=== PATIENT | male | born 1975 | race Caucasian/White ===

== ENCOUNTER 2019-02-24 11:25 | Inpatient (IN) | payer BC, OTHER ==
[~2019-02-24] VITALS: Ht 185.4 cm; Wt 90.2 kg
--- NOTE | 2019-02-24 11:54 | NUR ---
MEDICATION REQUESTED FROM PHARMACY
--- NOTE | 2019-02-24 11:56 | NUR ---
Note mo in EDM - 02/24/19 at 1156 by MARILY PER PT REQUEST, CALL PLACED TO HER MOM SYLVAIN [phone]. MESSAGE LEFT ASKING HER TO CALL THE ER. PT UPDATED.
[2019-02-24] MEDS ORDERED: LIDOCAINE 2%,20 ML JEL.PF.APP MM ONE (12:00)
[2019-02-24] MEDS ORDERED: HYDR30SU4 PR (12:03)
[2019-02-24] MEDS ORDERED: MESA1POW RC (12:05)
[2019-02-24 12:06] LABS: BASOPHILS # (AUTO) 0.04 x10^3/uL (0-0.1); BASOPHILS % (AUTO) 0 % (0-1); EOSINOPHILS # (AUTO) 0.23 x10^3/uL (0-0.4); EOSINOPHILS % (AUTO) 2 % (1-7); LYMPHOCYTES # (AUTO) 1.11 x10^3/uL (1-3.4); LYMPHOCYTES % (AUTO) 11 % (22-44); MD NO; MEAN CORPUSCULAR HEMOGLOBIN 31.7 pg (27.5-34.5); MEAN CORPUSCULAR HGB CONC 33.4 g/dL (33.2-36.2); MEAN CORPUSCULAR VOLUME 95.2 fL (81-97); MONOCYTES # (AUTO) 0.77 x10^3/uL (0.2-0.8); MONOCYTES % (AUTO) 8 % (2-9); NEUTROPHILS # (AUTO) 7.87 x10^3/uL (1.8-6.8); NEUTROPHILS % (AUTO) 79 % (42-75); PLATELET COUNT 334 x10^3/uL (130-400); RED BLOOD COUNT 3.95 x10^6/uL (4.38-5.82); RED CELL DISTRIBUTION WIDTH 12.3 % (9.4-14.8)
[2019-02-24] MEDS ORDERED: MESALAMINE PR (12:09)
--- NOTE | 2019-02-24 12:11 | NUR ---
FIRST CONTACT WITH PT. PT REPORTS "7 WEEKS OF ANAL PAIN AND INC FREQUENCY OF BM'S". PT REPORTS HX OF CROHN'S DISEASE, DIAGNOSED IN 2017. PT ALSO REPORTS FEVERS AND LOSS OF WEIGHT DUE TO A DECREASE IN ORAL INTAKE. PT REPORTS PAIN AT AN 8/10. PT NOT CURRENTLY ON MED FOR THE CROHN'S. SO AT BEDSIDE.
[2019-02-24 12:14] LABS: ALANINE AMINOTRANSFERASE 21 U/L (12-78); ANION GAP 9 mmol/L (5-15); CALCIUM 8.8 mg/dL (8.5-10.1); CHLORIDE 104 mmol/L (98-107); CREATININE 1.01 mg/dL (0.7-1.3)
[2019-02-24 12:16] LABS: ALKALINE PHOSPHATASE 139 U/L (45-117); BILIRUBIN,TOTAL 0.5 mg/dL (0.2-1.0); TOTAL PROTEIN 7.9 g/dL (6.4-8.2)
--- NOTE | 2019-02-24 13:03 | NUR ---
FULL DOSE OF LIDOCAINE INJECTED INTO PT RECTUM. PT TOLERATED PROCEDURE AND REPORTS A REDUCTION IN PAIN FROM A 8 DOWN TO A 5. NO SIGNS OF ACUTE DISTRESS. VS STABLE. PT DENIES ANY ADDITIONAL NEEDS AT THIS TIME.
[2019-02-24] MEDS ORDERED: OMNIPAQUE 350 MG/ML, 100ML BOTTLE ONE (13:52)
--- NOTE | 2019-02-24 14:18 | NUR ---
Break RN: Report from Roxanne CRUZ, pt req pain meds, no cultures needed prior to abx per md.
[2019-02-24] MEDS ORDERED: MORPHINE SULFATE 4 MG/ML, 1ML ONE (14:20)
--- NOTE | 2019-02-24 14:29 | NUR ---
Pt medicated for 8/10 pain, pt reports decreased pain after meds, denies needs/concerns, family at bedside.
[2019-02-24] MEDS ORDERED: METRONIDAZOLE PMX 500MG/100ML 100 ML IV ONE (14:30)
[2019-02-24] MEDS ORDERED: AMPICILLIN/SULBACTAM 3 GM in SODIUM CHLORIDE 0.9% 100 ML IV ONE (14:30)
[2019-02-24] MEDS ORDERED: morphine SULFATE 10 MG/ML, 1ML IVPush ONE (14:30)
[2019-02-24] MEDS ORDERED: ONDANSETRON 2MG/ML, 2ML IVPush PRN (15:00)
[2019-02-24] MEDS ORDERED: ACETAMINOPHEN 325 MG TABLET PO PRN (15:00)
[2019-02-24] MEDS ORDERED: hydrALAzine 20 MG/ML, 1ML IVPush PRN (15:00)
--- NOTE | 2019-02-24 15:00 | NUR ---
ATTEMPT TO CALL REPORT, NURSE NOT AVAILABLE. IV ABX INFUSING WITHOUT S/S OF ADVERSE REACTION. NO NEEDS EXPRESSED AT THIS TIME.
[2019-02-24] MEDS ORDERED: METRONIDAZOLE PMX 500MG/100ML 100 ML ONE (15:13)
--- NOTE | 2019-02-24 15:19 | NUR ---
CALLING REPORT TO CHELLE ON 3NE.
--- NOTE | 2019-02-24 15:43 | NUR ---
REPORT GIVEN TO CHELLE. JANINA CURRENTLY RUNNING. AT BEDSIDE. PT DENIES ANY NEEDS.
[2019-02-24 16:18] VITALS: BP 134/75
[2019-02-24] MEDS: D5%-0.45NACL+KCL 20MEQ 1,000 ML IV SCH (16:58)
[2019-02-24] MEDS: OXYcodone IR 5MG TABLET PO PRN ×2 (17:40→21:56)
[2019-02-24 20:27] VITALS: BP 117/74
[2019-02-25] MEDS: D5%-0.45NACL+KCL 20MEQ 1,000 ML IV SCH (00:52)
[2019-02-25 00:53] VITALS: BP 115/75
[2019-02-25] MEDS: OXYcodone IR 5MG TABLET PO PRN ×6 (02:13→23:27)
[2019-02-25] MEDS: morphine SULFATE 10 MG/ML, 1ML IVPush PRN ×4 (03:30→22:43)
[2019-02-25 05:42] LABS: BASOPHILS # (AUTO) 0.01 x10^3/uL (0-0.1); BASOPHILS % (AUTO) 0 % (0-1); EOSINOPHILS # (AUTO) 0.35 x10^3/uL (0-0.4); EOSINOPHILS % (AUTO) 3 % (1-7); LYMPHOCYTES # (AUTO) 1.38 x10^3/uL (1-3.4); LYMPHOCYTES % (AUTO) 12 % (22-44); MD NO; MEAN CORPUSCULAR HEMOGLOBIN 31.8 pg (27.5-34.5); MEAN CORPUSCULAR HGB CONC 33.4 g/dL (33.2-36.2); MEAN PLATELET VOLUME 9.4 fL (7.4-10.4); MONOCYTES # (AUTO) 1.19 x10^3/uL (0.2-0.8); MONOCYTES % (AUTO) 11 % (2-9); NEUTROPHILS # (AUTO) 8.21 x10^3/uL (1.8-6.8); NEUTROPHILS % (AUTO) 74 % (42-75); PLATELET COUNT 285 x10^3/uL (130-400); RED BLOOD COUNT 3.49 x10^6/uL (4.38-5.82); RED CELL DISTRIBUTION WIDTH 12.5 % (9.4-14.8)
[2019-02-25 06:07] LABS: CHLORIDE 104 mmol/L (98-107); CREATININE 0.83 mg/dL (0.7-1.3)
[2019-02-25 06:10] LABS: ANION GAP 6 mmol/L (5-15); CALCIUM 7.8 mg/dL (8.5-10.1)
[2019-02-25 07:46] VITALS: BP 108/66
[2019-02-25 13:46] VITALS: BP 109/70
[2019-02-25] MEDS: METRONIDAZOLE PMX 500MG/100ML 100 ML IV SCH ×2 (14:55→22:43)
[2019-02-25] MEDS: CIPROFLOXACIN/PMX 400MG/200ML 200 ML IV SCH (16:25)
[2019-02-25 18:45] VITALS: BP 110/67
[2019-02-26 01:00] VITALS: BP 115/70
[2019-02-26] MEDS: CIPROFLOXACIN/PMX 400MG/200ML 200 ML IV SCH ×2 (02:34→16:44)
[2019-02-26] MEDS: OXYcodone IR 5MG TABLET PO PRN ×4 (04:23→21:20)
[2019-02-26] MEDS: METRONIDAZOLE PMX 500MG/100ML 100 ML IV SCH ×3 (06:32→22:25)
[2019-02-26 07:35] VITALS: BP 114/74
[2019-02-26] MEDS: morphine SULFATE 10 MG/ML, 1ML IVPush PRN ×4 (08:11→22:25)
[2019-02-26] MEDS ORDERED: PROPOFOL 50 ML ONE (12:10)
[2019-02-26] MEDS ORDERED: MIDAZOLAM 1 MG/ML, 2ML ONE (12:10)
[2019-02-26] MEDS ORDERED: FENTANYL PF 250 MCG/5ML ONE (12:11)
[2019-02-26 12:20] VITALS: BP 114/63
[2019-02-26] MEDS ORDERED: ONDANSETRON 2MG/ML, 2ML IV PRN (13:00)
[2019-02-26] MEDS ORDERED: MEPERIDINE/PF 25MG/0.5ML IVPush PRN (13:00)
[2019-02-26] MEDS ORDERED: ONDANSETRON ODT 8 MG PO PRN (13:00)
[2019-02-26] MEDS ORDERED: OXYcodone 5 MG/5 ML ORAL.SOL UDC PO PRN (13:00)
[2019-02-26] MEDS ORDERED: EPHEDRINE 50 MG/ML, 1ML IM PRN (13:00)
[2019-02-26] MEDS ORDERED: MORPHINE SULFATE 4 MG/ML, 1ML IVPush PRN (13:00)
[2019-02-26] MEDS ORDERED: MIDAZOLAM 1 MG/ML, 2ML IV PRN (13:00)
[2019-02-26] MEDS ORDERED: PROMETHAZINE 25 MG/ML, 1ML IV PRN (13:00)
[2019-02-26] MEDS ORDERED: DIPHENHYDRAMINE 50 MG/ML, 1ML IVPush PRN (13:00)
[2019-02-26] MEDS ORDERED: FENTANYL PF 100 MCG/2ML IV PRN (13:00)
[2019-02-26] MEDS ORDERED: SILVER SULF. CRM 1% , 25GM ONE (13:17)
[2019-02-26] MEDS ORDERED: LIDOCAINE 2%, 6 ML JEL.PF.APP MM ONE (13:23)
[2019-02-26] MEDS ORDERED: ONDANSETRON 2MG/ML, 2ML ONE (13:44)
[2019-02-26] MEDS ORDERED: KETOROLAC 30 MG/1 ML ONE (13:44)
[2019-02-26] MEDS ORDERED: PROPOFOL 10 MG/ML, 20ML ONE (13:44)
[2019-02-26] MEDS ORDERED: DEXAMETHASONE 4 MG/ML, 1ML ONE (13:44)
[2019-02-26] MEDS ORDERED: BUPIVACAINE/PF-EPI 0.5% 1:200K ONE (13:51)
[2019-02-26 19:57] VITALS: BP 104/66
[2019-02-27 01:33] VITALS: BP 94/55
[2019-02-27] MEDS: OXYcodone IR 5MG TABLET PO PRN ×6 (01:48→23:20)
[2019-02-27] MEDS: morphine SULFATE 10 MG/ML, 1ML IVPush PRN ×6 (03:07→21:44)
[2019-02-27] MEDS: CIPROFLOXACIN/PMX 400MG/200ML 200 ML IV SCH ×2 (04:23→16:57)
[2019-02-27] MEDS: METRONIDAZOLE PMX 500MG/100ML 100 ML IV SCH ×3 (06:03→23:20)
[2019-02-27 07:45] VITALS: BP 105/62
[2019-02-27 13:00] VITALS: BP 105/65
[2019-02-27 19:30] VITALS: BP 106/66
[2019-02-28 01:37] VITALS: BP 103/65
[2019-02-28] MEDS: CIPROFLOXACIN/PMX 400MG/200ML 200 ML IV SCH ×2 (04:48→16:30)
[2019-02-28] MEDS: OXYcodone IR 5MG TABLET PO PRN ×3 (04:53→13:42)
[2019-02-28] MEDS: METRONIDAZOLE PMX 500MG/100ML 100 ML IV SCH ×2 (07:29→15:30)
[2019-02-28 08:08] VITALS: BP 107/65
[2019-02-28] MEDS: morphine SULFATE 10 MG/ML, 1ML IVPush PRN (11:49)
[2019-02-28 13:00] VITALS: BP 99/61
[2019-02-28] MEDS ORDERED: CIPR500T3 PO (15:40)
[2019-02-28] MEDS ORDERED: METR-90 PO (15:40)
[2019-02-28] MEDS ORDERED: OXYC-293 PO (15:41)
== END 2019-02-28 18:19 | disposition home or self-care (01) | DRG 345 ==
LOC: ED 12:25 → EDIP 14:54 → 3NE 15:48
PROVIDERS: ADMIT Hospitalist; ATTEND Hospitalist
PROC: 0DJD8ZZ Inspection of Lower Intestinal Tract, Via Natural or Artificial Opening Endoscopic (ICD-10-PCS; 2019-02-24)
PROC: 0D9P0ZZ Drainage of Rectum, Open Approach (ICD-10-PCS; principal; 2019-02-26 11:45)
DX: K61.1 Rectal abscess (principal); K50.911 Crohn's disease, unspecified, with rectal bleeding; K60.3 Anal fistula; D64.9 Anemia, unspecified; E88.09 Other disorders of plasma-protein metabolism, not elsewhere classified; R33.9 Retention of urine, unspecified; R73.9 Hyperglycemia, unspecified; K64.9 Unspecified hemorrhoids; Z80.1 Family history of malignant neoplasm of trachea, bronchus and lung; Z86.010 Personal history of colon polyps; Z87.891 Personal history of nicotine dependence; Z91.19 Patient's noncompliance with other medical treatment and regimen
CPT/HCPCS: 36415; 74177; 80048; 80053; 83735; 85025; 87070; 87075; 87077; 87147; 87205; 96365; 96375; G0378; J0295; J0744; J1100; J1885; J2250; J2405; J2704; J3010; Q9967; J2270; J3480

== ENCOUNTER 2019-03-04 10:42 | Inpatient (IN) | payer BC ==
[~2019-03-04] VITALS: Ht 182.9 cm; Wt 80.0 kg
[~2019-03-04 10:42] MED LIST: CIPR500T3 PO; HYDR30SU4 PR; MESA1POW RC; MESALAMINE PR; METR-90 PO; OXYC-293 PO
--- NOTE | 2019-03-04 11:31 | NUR ---
FROM LOBBY TO ROOM AT THIS TIME
--- NOTE | 2019-03-04 11:42 | NUR ---
Kika bishopeliud in ED - 03/04/19 at 1153 by [email or web address] PT STATES HE HAD SURG TO REMOVE AB ON MONDAY, WAS SENT HOME MONDAY. HIS PAIN IS 10/10, THE PAIN MEDS THAT WERE PRESCRIBED AFTER SURG ARE NOT WORKING.
--- NOTE | 2019-03-04 11:53 | NUR ---
PT STATES HE HAD SURG TO REMOVE ABSCESS FROM HIS COLON ON MONDAY, WAS SENT HOME MONDAY. HIS PAIN IS 10/10, THE PAIN MEDS THAT WERE PRESCRIBED AFTER SURG ARE NOT WORKING.
[2019-03-04] MEDS ORDERED: SODIUM CHLORIDE 0.9% 1,000 ML IV ONE ×3 (11:56→16:16)
[2019-03-04] MEDS ORDERED: SODIUM CHLORIDE 0.9% 1,000ML IVBOLUS ONE (12:00)
[2019-03-04] MEDS ORDERED: SODIUM CHLORIDE FLUSH 10ML SYR IVF ONE (12:00)
[2019-03-04] MEDS ORDERED: ONDANSETRON 2MG/ML, 2ML IVPush ONE (12:00)
[2019-03-04] MEDS ORDERED: MORPHINE SULFATE 4 MG/ML, 1ML ONE ×3 (12:23→16:13)
[2019-03-04] MEDS ORDERED: ONDANSETRON 2MG/ML, 2ML ONE ×3 (12:23→18:29)
[2019-03-04] MEDS: MORPHINE SULFATE 4 MG/ML, 1ML IVPush PRN ×2 (12:28→13:24)
[2019-03-04 12:47] LABS: BASOPHILS # (AUTO) 0.03 x10^3/uL (0-0.1); BASOPHILS % (AUTO) 0 % (0-1); EOSINOPHILS # (AUTO) 0.19 x10^3/uL (0-0.4); EOSINOPHILS % (AUTO) 2 % (1-7); LYMPHOCYTES # (AUTO) 0.92 x10^3/uL (1-3.4); LYMPHOCYTES % (AUTO) 10 % (22-44); MD NO; MEAN CORPUSCULAR HEMOGLOBIN 30.6 pg (27.5-34.5); MEAN CORPUSCULAR HGB CONC 32.7 g/dL (33.2-36.2); MEAN CORPUSCULAR VOLUME 93.6 fL (81-97); MEAN PLATELET VOLUME 9.3 fL (7.4-10.4); MONOCYTES # (AUTO) 1.17 x10^3/uL (0.2-0.8); MONOCYTES % (AUTO) 13 % (2-9); NEUTROPHILS # (AUTO) 7.03 x10^3/uL (1.8-6.8); NEUTROPHILS % (AUTO) 75 % (42-75); PLATELET COUNT 399 x10^3/uL (130-400); RED CELL DISTRIBUTION WIDTH 12.7 % (9.4-14.8)
[2019-03-04 12:57] LABS: ALANINE AMINOTRANSFERASE 65 U/L (12-78); ALBUMIN 2.8 g/dL (3.4-5.0); ANION GAP 8 mmol/L (5-15); CALCIUM 8.6 mg/dL (8.5-10.1); CHLORIDE 105 mmol/L (98-107)
[2019-03-04 13:00] LABS: ALKALINE PHOSPHATASE 244 U/L (45-117); BILIRUBIN,TOTAL 0.4 mg/dL (0.2-1.0); CREATININE 1.08 mg/dL (0.7-1.3); TOTAL PROTEIN 8.1 g/dL (6.4-8.2)
--- NOTE | 2019-03-04 13:44 | NUR ---
PT RESTING IN BED, DENIES NEEDS AT THIS TIME.
--- NOTE | 2019-03-04 13:52 | NUR ---
PLAN OF CARE DISCUSSED WITH PT AND PT FAMILY. VSS. NO ACUTE SIGNS OF DISTRESS. PT HAS BEEN INFORMED THAT WE NEED A UA, HE SAID "I WILL LET YOU KNOW WHEN I CAN GO".
[2019-03-04] MEDS ORDERED: OMNIPAQUE 350 MG/ML, 100ML BOTTLE ONE (14:16)
--- NOTE | 2019-03-04 15:06 | NUR ---
ALL TESTS RESULTED, CHART UP FOR RECHECK.
--- NOTE | 2019-03-04 15:54 | NUR ---
DR DISCUSSED PLAN OF CARE WITH PT AND FAMILY. PT AGREES WITH PLAN OF CARE. VSS. PT C/O CONTINUED PAIN, I REQUESTED PAIN MEDICATION FROM THE DR. NO ACUTE SIGNS OF DISTRESS.
[2019-03-04] MEDS ORDERED: SODIUM CHLORIDE FLUSH 10ML SYR IVF PRN ×2 (16:00→16:30)
[2019-03-04] MEDS ORDERED: ONDANSETRON 2MG/ML, 2ML IVPush PRN (16:00)
[2019-03-04] MEDS ORDERED: MORPHINE SULFATE 4 MG/ML, 1ML IVPush PRN ×2 (16:00)
[2019-03-04] MEDS: SODIUM CHLORIDE 0.9% 1,000 ML IV SCH (16:26)
[2019-03-04] MEDS ORDERED: morphine SULFATE 10 MG/ML, 1ML IVPush PRN (16:30)
[2019-03-04] MEDS ORDERED: hydrALAzine 20 MG/ML, 1ML IVPush PRN (16:30)
[2019-03-04] MEDS ORDERED: PROMETHAZINE 25 MG/ML, 1ML IM PRN (16:30)
[2019-03-04] MEDS ORDERED: ONDANSETRON ODT 4 MG PO PRN (16:30)
[2019-03-04] MEDS: PIPERACILLIN/TAZO/PMX 3.375GM 50 ML IV SCH ×2 (16:30→22:24)
[2019-03-04] MEDS ORDERED: ACETAMINOPHEN 325 MG TABLET PO PRN ×2 (16:30→18:00)
[2019-03-04] MEDS ORDERED: DOCUSATE 100 MG CAPSULE PO PRN (16:30)
[2019-03-04] MEDS ORDERED: PIPERACILLIN/TAZO/PMX 3.375GM 50 ML ONE (16:40)
--- NOTE | 2019-03-04 16:48 | NUR ---
REPORT GIVEN TO CHELLE.
[2019-03-04 17:30] LABS: HEMOGLOBIN A1C 5.3 % (4.2-6.3)
[2019-03-04 17:43] VITALS: BP 130/65
[2019-03-04] MEDS ORDERED: MIDAZOLAM 1 MG/ML, 2ML ONE (17:50)
[2019-03-04] MEDS ORDERED: FENTANYL PF 250 MCG/5ML ONE (17:51)
[2019-03-04] MEDS ORDERED: MIDAZOLAM 1 MG/ML, 2ML IV PRN (18:00)
[2019-03-04] MEDS ORDERED: PROMETHAZINE 25 MG/ML, 1ML IV PRN (18:00)
[2019-03-04] MEDS ORDERED: ALBUTEROL/IPRATROPIUM 2.5MG/0.5MG, 3 ML NPPB PRN (18:00)
[2019-03-04] MEDS ORDERED: hydrALAzine 20 MG/ML, 1ML IV PRN (18:00)
[2019-03-04] MEDS ORDERED: SCOPOLAMINE PATCH, 1.5MG PATCH.TD72 TD PRN (18:00)
[2019-03-04] MEDS ORDERED: LIDOCAINE-MPF 2% ,5ML ONE (18:00)
[2019-03-04] MEDS ORDERED: ONDANSETRON 2MG/ML, 2ML IV PRN (18:00)
[2019-03-04] MEDS ORDERED: METOPROLOL 1 MG/ML, 5ML IV PRN (18:00)
[2019-03-04] MEDS ORDERED: MEPERIDINE/PF 25MG/0.5ML IVPush PRN (18:00)
[2019-03-04] MEDS ORDERED: OXYcodone 5 MG/5 ML ORAL.SOL UDC PO PRN (18:00)
[2019-03-04] MEDS ORDERED: KETOROLAC 30 MG/1 ML ONE (18:00)
[2019-03-04 18:25] LABS: FREE T4 (FREE THYROXINE) 1.32 ng/dL (0.76-1.46); THYROID STIMULATING HORMONE 1.37 mIU/L (0.358-3.740)
[2019-03-04] MEDS ORDERED: PROPOFOL 10 MG/ML, 20ML ONE (18:29)
[2019-03-04] MEDS ORDERED: DEXAMETHASONE 4 MG/ML, 1ML ONE (18:29)
[2019-03-04] MEDS ORDERED: FENTANYL PF 100 MCG/2ML ONE (18:45)
[2019-03-04] MEDS ORDERED: OXYcodone 5 MG/5 ML ORAL.SOL UDC ONE (18:45)
[2019-03-04] MEDS: FENTANYL PF 100 MCG/2ML IV PRN ×2 (18:53→19:30)
[2019-03-04] MEDS ORDERED: HYDROmorphone 2 MG/ML, 1ML ONE (19:15)
[2019-03-04] MEDS: HYDROmorphone 2 MG/ML, 1ML IVPush PRN ×2 (19:17→19:35)
[2019-03-04 20:00] VITALS: BP 116/82
[2019-03-04 23:30] VITALS: BP_SYST 119; BP_SYST 123; BP_DIAS 73; BP_DIAS 76
[2019-03-05] MEDS: SODIUM CHLORIDE 0.9% 1,000 ML IV SCH ×2 (00:21→08:43)
[2019-03-05 03:22] VITALS: BP 112/68
[2019-03-05] MEDS: OXYcodone IR 5MG TABLET PO PRN ×5 (04:32→23:43)
[2019-03-05] MEDS: PIPERACILLIN/TAZO/PMX 3.375GM 50 ML IV SCH ×4 (04:33→22:38)
[2019-03-05 05:21] LABS: BASOPHILS # (AUTO) 0.01 x10^3/uL (0-0.1); BASOPHILS % (AUTO) 0 % (0-1); EOSINOPHILS # (AUTO) 0.01 x10^3/uL (0-0.4); EOSINOPHILS % (AUTO) 0 % (1-7); LYMPHOCYTES # (AUTO) 0.76 x10^3/uL (1-3.4); LYMPHOCYTES % (AUTO) 9 % (22-44); MD NO; MEAN CORPUSCULAR HEMOGLOBIN 30.7 pg (27.5-34.5); MEAN CORPUSCULAR HGB CONC 32.6 g/dL (33.2-36.2); MEAN CORPUSCULAR VOLUME 94.2 fL (81-97); MEAN PLATELET VOLUME 9.6 fL (7.4-10.4); MONOCYTES # (AUTO) 0.68 x10^3/uL (0.2-0.8); MONOCYTES % (AUTO) 8 % (2-9); NEUTROPHILS # (AUTO) 7.15 x10^3/uL (1.8-6.8); NEUTROPHILS % (AUTO) 83 % (42-75); PLATELET COUNT 361 x10^3/uL (130-400); RED BLOOD COUNT 3.32 x10^6/uL (4.38-5.82); RED CELL DISTRIBUTION WIDTH 13.2 % (9.4-14.8)
[2019-03-05 05:29] LABS: ALBUMIN 2.3 g/dL (3.4-5.0); ANION GAP 6 mmol/L (5-15); CALCIUM 7.9 mg/dL (8.5-10.1); CHLORIDE 109 mmol/L (98-107)
[2019-03-05 05:33] LABS: ALANINE AMINOTRANSFERASE 49 U/L (12-78); ALKALINE PHOSPHATASE 308 U/L (45-117); BILIRUBIN,TOTAL 0.2 mg/dL (0.2-1.0); CHOL/HDL RATIO 3.7; CHOLESTEROL, TOTAL 100 mg/dL (140-239); CREATININE 0.78 mg/dL (0.7-1.3); HDL CHOL % 27 % (26-37); HDL CHOLESTEROL (DIRECT) 27 mg/dL (40-60); LDL CHOLESTEROL,CALCULATED 54 mg/dL (54-169); TOTAL PROTEIN 6.5 g/dL (6.4-8.2); TRIGLYCERIDES 97 mg/dL (50-200); VLDL CHOLESTEROL 19 mg/dL (0-25)
[2019-03-05 07:00] VITALS: BP 117/72
[2019-03-05] MEDS ORDERED: POTASSIUM PHOSPHATE 44 MEQ in SODIUM CHLORIDE 0.9% 500 ML IV ONE (10:00)
[2019-03-05 13:20] VITALS: BP 117/59
[2019-03-05 19:18] VITALS: BP 113/55
[2019-03-06 01:51] VITALS: BP 89/46
[2019-03-06 01:59] VITALS: BP 96/61
[2019-03-06] MEDS: PIPERACILLIN/TAZO/PMX 3.375GM 50 ML IV SCH ×4 (04:25→22:10)
[2019-03-06] MEDS: OXYcodone IR 5MG TABLET PO PRN ×5 (06:02→22:10)
[2019-03-06 07:15] VITALS: BP 109/67
[2019-03-06 13:09] VITALS: BP 115/60
[2019-03-06 19:41] VITALS: BP 115/68
[2019-03-06] MEDS: D5%-0.45NACL+KCL 20MEQ 1,000 ML IV SCH (22:10)
[2019-03-07] MEDS: OXYcodone IR 5MG TABLET PO PRN ×5 (02:17→22:35)
[2019-03-07 02:36] VITALS: BP 105/65
[2019-03-07] MEDS: PIPERACILLIN/TAZO/PMX 3.375GM 50 ML IV SCH ×4 (04:46→22:35)
[2019-03-07 06:09] LABS: ANION GAP 7 mmol/L (5-15); CHLORIDE 106 mmol/L (98-107)
[2019-03-07 06:11] LABS: CREATININE 0.78 mg/dL (0.7-1.3)
[2019-03-07 06:26] LABS: BASOPHILS # (AUTO) 0.04 x10^3/uL (0-0.1); BASOPHILS % (AUTO) 1 % (0-1); EOSINOPHILS # (AUTO) 0.39 x10^3/uL (0-0.4); EOSINOPHILS % (AUTO) 6 % (1-7); LYMPHOCYTES # (AUTO) 1.38 x10^3/uL (1-3.4); LYMPHOCYTES % (AUTO) 20 % (22-44); MD NO; MEAN CORPUSCULAR HEMOGLOBIN 30.5 pg (27.5-34.5); MEAN CORPUSCULAR HGB CONC 32.7 g/dL (33.2-36.2); MEAN CORPUSCULAR VOLUME 93.3 fL (81-97); MEAN PLATELET VOLUME 9.4 fL (7.4-10.4); MONOCYTES # (AUTO) 0.86 x10^3/uL (0.2-0.8); MONOCYTES % (AUTO) 13 % (2-9); NEUTROPHILS # (AUTO) 4.09 x10^3/uL (1.8-6.8); NEUTROPHILS % (AUTO) 61 % (42-75); PLATELET COUNT 309 x10^3/uL (130-400); RED BLOOD COUNT 3.08 x10^6/uL (4.38-5.82); RED CELL DISTRIBUTION WIDTH 13.1 % (9.4-14.8)
[2019-03-07 07:19] VITALS: BP 155/65
[2019-03-07] MEDS: D5%-0.45NACL+KCL 20MEQ 1,000 ML IV SCH ×2 (08:13→22:35)
[2019-03-07] MEDS ORDERED: ROCURONIUM 10MG/ML,5ML ONE (10:30)
[2019-03-07] MEDS ORDERED: ONDANSETRON 2MG/ML, 2ML ONE (10:30)
[2019-03-07] MEDS ORDERED: DEXAMETHASONE 4 MG/ML, 1ML ONE (10:30)
[2019-03-07] MEDS ORDERED: PROPOFOL 10 MG/ML, 20ML ONE (10:30)
[2019-03-07] MEDS ORDERED: MIDAZOLAM 1 MG/ML, 2ML ONE (15:48)
[2019-03-07] MEDS ORDERED: FENTANYL PF 250 MCG/5ML ONE (15:48)
[2019-03-07] MEDS ORDERED: BUPIVACAINE/PF 0.5% ONE (16:07)
[2019-03-07] MEDS ORDERED: BUPIVACAINE/PF 0.25% ONE (16:07)
[2019-03-07] MEDS ORDERED: EPINEPHRINE 1 MG/ML, 1ML ONE (16:08)
[2019-03-07] MEDS ORDERED: MEPERIDINE/PF 25MG/0.5ML IVPush PRN (17:00)
[2019-03-07] MEDS ORDERED: hydrALAzine 20 MG/ML, 1ML IV PRN (17:00)
[2019-03-07] MEDS ORDERED: PROMETHAZINE 25 MG/ML, 1ML IV PRN (17:00)
[2019-03-07] MEDS ORDERED: ONDANSETRON 2MG/ML, 2ML IV PRN (17:00)
[2019-03-07] MEDS ORDERED: OXYcodone 5 MG/5 ML ORAL.SOL UDC PO PRN (17:00)
[2019-03-07] MEDS ORDERED: LABETALOL 5MG/ML, 20ML IV PRN (17:00)
[2019-03-07] MEDS ORDERED: FENTANYL PF 100 MCG/2ML ONE ×2 (18:05→18:43)
[2019-03-07] MEDS ORDERED: HYDROmorphone 2 MG/ML, 1ML ONE (18:05)
[2019-03-07] MEDS: HYDROmorphone 2 MG/ML, 1ML IVPush PRN ×4 (18:08→18:42)
[2019-03-07] MEDS: FENTANYL PF 100 MCG/2ML IV PRN ×4 (18:11→18:49)
[2019-03-07] MEDS ORDERED: OXYcodone 5 MG/5 ML ORAL.SOL UDC ONE (18:19)
[2019-03-07 19:14] VITALS: BP 119/89
[2019-03-08 00:17] VITALS: BP 91/54
[2019-03-08 03:34] VITALS: BP 99/58
[2019-03-08] MEDS: OXYcodone IR 5MG TABLET PO PRN ×5 (03:48→20:09)
[2019-03-08] MEDS: PIPERACILLIN/TAZO/PMX 3.375GM 50 ML IV SCH ×4 (05:10→22:17)
[2019-03-08 05:46] LABS: MEAN CORPUSCULAR HEMOGLOBIN 30.6 pg (27.5-34.5); MEAN CORPUSCULAR HGB CONC 32.6 g/dL (33.2-36.2); MEAN PLATELET VOLUME 9.8 fL (7.4-10.4); PLATELET COUNT 408 x10^3/uL (130-400); RED BLOOD COUNT 3.19 x10^6/uL (4.38-5.82)
[2019-03-08 05:58] LABS: ANION GAP 5 mmol/L (5-15); CALCIUM 7.9 mg/dL (8.5-10.1); CHLORIDE 105 mmol/L (98-107)
[2019-03-08 05:59] LABS: CREATININE 0.72 mg/dL (0.7-1.3)
[2019-03-08 06:07] LABS: BASOPHILS # (AUTO) 0.01 x10^3/uL (0-0.1); BASOPHILS % (AUTO) 0 % (0-1); EOSINOPHILS # (AUTO) 0.01 x10^3/uL (0-0.4); EOSINOPHILS % (AUTO) 0 % (1-7); LYMPHOCYTES # (AUTO) 0.89 x10^3/uL (1-3.4); LYMPHOCYTES % (AUTO) 8 % (22-44); MD SCAN; MONOCYTES # (AUTO) 0.68 x10^3/uL (0.2-0.8); MONOCYTES % (AUTO) 7 % (2-9); NEUTROPHILS # (AUTO) 9.02 x10^3/uL (1.8-6.8); NEUTROPHILS % (AUTO) 85 % (42-75)
[2019-03-08 07:20] VITALS: BP 101/56
[2019-03-08] MEDS: D5%-0.45NACL+KCL 20MEQ 1,000 ML IV SCH ×2 (09:14→18:51)
[2019-03-08 14:21] VITALS: BP 109/67
[2019-03-08 18:57] VITALS: BP 99/60
[2019-03-09] MEDS: OXYcodone IR 5MG TABLET PO PRN ×6 (00:07→21:51)
[2019-03-09 01:38] VITALS: BP 111/67
[2019-03-09] MEDS: D5%-0.45NACL+KCL 20MEQ 1,000 ML IV SCH ×3 (04:01→21:51)
[2019-03-09] MEDS: PIPERACILLIN/TAZO/PMX 3.375GM 50 ML IV SCH ×4 (04:20→22:53)
[2019-03-09 05:26] LABS: BASOPHILS # (AUTO) 0.05 x10^3/uL (0-0.1); BASOPHILS % (AUTO) 1 % (0-1); EOSINOPHILS # (AUTO) 0.57 x10^3/uL (0-0.4); EOSINOPHILS % (AUTO) 6 % (1-7); LYMPHOCYTES # (AUTO) 2.15 x10^3/uL (1-3.4); LYMPHOCYTES % (AUTO) 22 % (22-44); MD NO; MEAN CORPUSCULAR HEMOGLOBIN 30.5 pg (27.5-34.5); MEAN CORPUSCULAR HGB CONC 32.2 g/dL (33.2-36.2); MEAN CORPUSCULAR VOLUME 94.7 fL (81-97); MEAN PLATELET VOLUME 9.3 fL (7.4-10.4); MONOCYTES % (AUTO) 10 % (2-9); NEUTROPHILS # (AUTO) 6.15 x10^3/uL (1.8-6.8); NEUTROPHILS % (AUTO) 62 % (42-75); PLATELET COUNT 412 x10^3/uL (130-400); RED BLOOD COUNT 3.14 x10^6/uL (4.38-5.82); RED CELL DISTRIBUTION WIDTH 13.3 % (9.4-14.8)
[2019-03-09 05:32] LABS: CHLORIDE 106 mmol/L (98-107)
[2019-03-09 05:40] LABS: ALANINE AMINOTRANSFERASE 69 U/L (12-78); ALBUMIN 2.3 g/dL (3.4-5.0); ALKALINE PHOSPHATASE 539 U/L (45-117); ANION GAP 5 mmol/L (5-15); BILIRUBIN,TOTAL 0.3 mg/dL (0.2-1.0); CALCIUM 8.3 mg/dL (8.5-10.1); CREATININE 0.81 mg/dL (0.7-1.3); TOTAL PROTEIN 7.1 g/dL (6.4-8.2)
[2019-03-09 08:26] VITALS: BP 111/66
[2019-03-09] MEDS: ONDANSETRON 2MG/ML, 2ML IVPush PRN (13:03)
[2019-03-09] MEDS: DIAZEPAM 5 MG/ML, 2ML IV PRN (13:09)
[2019-03-09 14:21] VITALS: BP 133/78
[2019-03-09 18:56] VITALS: BP 114/74
[2019-03-10] MEDS: DIAZEPAM 5 MG/ML, 2ML IV PRN ×3 (00:14→23:24)
[2019-03-10 00:20] VITALS: BP 120/67
[2019-03-10] MEDS: OXYcodone IR 5MG TABLET PO PRN ×5 (04:43→21:52)
[2019-03-10] MEDS: PIPERACILLIN/TAZO/PMX 3.375GM 50 ML IV SCH ×4 (04:43→23:03)
[2019-03-10 05:26] LABS: BASOPHILS # (AUTO) 0.09 x10^3/uL (0-0.1); BASOPHILS % (AUTO) 1 % (0-1); EOSINOPHILS # (AUTO) 0.63 x10^3/uL (0-0.4); EOSINOPHILS % (AUTO) 6 % (1-7); LYMPHOCYTES # (AUTO) 2.28 x10^3/uL (1-3.4); LYMPHOCYTES % (AUTO) 20 % (22-44); MD NO; MEAN CORPUSCULAR HEMOGLOBIN 29.9 pg (27.5-34.5); MEAN CORPUSCULAR HGB CONC 31.9 g/dL (33.2-36.2); MEAN CORPUSCULAR VOLUME 93.6 fL (81-97); MEAN PLATELET VOLUME 9.1 fL (7.4-10.4); MONOCYTES # (AUTO) 0.88 x10^3/uL (0.2-0.8); MONOCYTES % (AUTO) 8 % (2-9); NEUTROPHILS # (AUTO) 7.44 x10^3/uL (1.8-6.8); NEUTROPHILS % (AUTO) 66 % (42-75); PLATELET COUNT 464 x10^3/uL (130-400); RED BLOOD COUNT 3.45 x10^6/uL (4.38-5.82); RED CELL DISTRIBUTION WIDTH 13.6 % (9.4-14.8)
[2019-03-10 05:41] LABS: CHLORIDE 104 mmol/L (98-107)
[2019-03-10 05:57] LABS: ANION GAP 6 mmol/L (5-15); CALCIUM 8.6 mg/dL (8.5-10.1); CREATININE 0.81 mg/dL (0.7-1.3)
[2019-03-10 05:58] LABS: ALANINE AMINOTRANSFERASE 57 U/L (12-78); ALBUMIN 2.4 g/dL (3.4-5.0); ALKALINE PHOSPHATASE 473 U/L (45-117); BILIRUBIN,TOTAL 0.5 mg/dL (0.2-1.0); TOTAL PROTEIN 7.4 g/dL (6.4-8.2)
[2019-03-10 07:50] VITALS: BP 122/75
[2019-03-10] MEDS: D5%-0.45NACL+KCL 20MEQ 1,000 ML IV SCH ×2 (08:00→16:59)
[2019-03-10] MEDS: ONDANSETRON 2MG/ML, 2ML IVPush PRN (09:29)
[2019-03-10 13:06] VITALS: BP 128/79
[2019-03-10 19:22] VITALS: BP 113/66
[2019-03-11] MEDS: D5%-0.45NACL+KCL 20MEQ 1,000 ML IV SCH ×3 (02:19→22:50)
[2019-03-11 03:32] VITALS: BP 117/73
[2019-03-11] MEDS: PIPERACILLIN/TAZO/PMX 3.375GM 50 ML IV SCH ×4 (04:58→22:49)
[2019-03-11] MEDS: OXYcodone IR 5MG TABLET PO PRN ×5 (05:05→21:00)
[2019-03-11 05:24] LABS: BASOPHILS # (AUTO) 0.07 x10^3/uL (0-0.1); BASOPHILS % (AUTO) 1 % (0-1); EOSINOPHILS # (AUTO) 0.73 x10^3/uL (0-0.4); EOSINOPHILS % (AUTO) 7 % (1-7); LYMPHOCYTES # (AUTO) 1.79 x10^3/uL (1-3.4); LYMPHOCYTES % (AUTO) 17 % (22-44); MD NO; MEAN CORPUSCULAR HEMOGLOBIN 30.3 pg (27.5-34.5); MEAN CORPUSCULAR HGB CONC 32.1 g/dL (33.2-36.2); MEAN CORPUSCULAR VOLUME 94.6 fL (81-97); MONOCYTES # (AUTO) 0.97 x10^3/uL (0.2-0.8); MONOCYTES % (AUTO) 9 % (2-9); NEUTROPHILS % (AUTO) 66 % (42-75); PLATELET COUNT 455 x10^3/uL (130-400); RED BLOOD COUNT 3.41 x10^6/uL (4.38-5.82); RED CELL DISTRIBUTION WIDTH 12.9 % (9.4-14.8)
[2019-03-11 05:30] LABS: ALANINE AMINOTRANSFERASE 63 U/L (12-78); ALBUMIN 2.3 g/dL (3.4-5.0); ANION GAP 5 mmol/L (5-15); CALCIUM 8.4 mg/dL (8.5-10.1); CHLORIDE 104 mmol/L (98-107); CREATININE 0.82 mg/dL (0.7-1.3)
[2019-03-11 05:32] LABS: ALKALINE PHOSPHATASE 373 U/L (45-117); BILIRUBIN,TOTAL 0.4 mg/dL (0.2-1.0)
[2019-03-11 08:12] VITALS: BP 113/69
[2019-03-11] MEDS ORDERED: OMNIPAQUE 350 MG/ML, 100ML BOTTLE ONE (11:32)
[2019-03-11] MEDS ORDERED: HEPARIN 1,000 UNITS/ML, 1ML IV ONE (12:00)
[2019-03-11] MEDS ORDERED: HEPARIN 25,000 UNITS/500ML PMX 500 ML IV PRN (12:30)
[2019-03-11] MEDS ORDERED: HEPARIN 5,000 UNITS/ML, 1ML IV ONE (12:30)
[2019-03-11 13:45] VITALS: BP 110/71
[2019-03-11] MEDS: HEPARIN 5,000 UNITS/ML, 1ML IV PRN (20:56)
[2019-03-11 21:08] VITALS: BP 104/67
[2019-03-12] MEDS: OXYcodone IR 5MG TABLET PO PRN ×6 (01:05→20:59)
[2019-03-12] MEDS: DIAZEPAM 5 MG/ML, 2ML IV PRN ×2 (01:23→14:41)
[2019-03-12 03:12] LABS: BASOPHILS # (AUTO) 0.05 x10^3/uL (0-0.1); BASOPHILS % (AUTO) 1 % (0-1); EOSINOPHILS # (AUTO) 0.71 x10^3/uL (0-0.4); EOSINOPHILS % (AUTO) 7 % (1-7); LYMPHOCYTES # (AUTO) 1.95 x10^3/uL (1-3.4); LYMPHOCYTES % (AUTO) 19 % (22-44); MD NO; MEAN CORPUSCULAR HEMOGLOBIN 30.3 pg (27.5-34.5); MEAN CORPUSCULAR HGB CONC 32.2 g/dL (33.2-36.2); MEAN CORPUSCULAR VOLUME 94.2 fL (81-97); MEAN PLATELET VOLUME 8.9 fL (7.4-10.4); MONOCYTES # (AUTO) 0.91 x10^3/uL (0.2-0.8); MONOCYTES % (AUTO) 9 % (2-9); NEUTROPHILS # (AUTO) 6.82 x10^3/uL (1.8-6.8); NEUTROPHILS % (AUTO) 65 % (42-75); PLATELET COUNT 461 x10^3/uL (130-400); RED BLOOD COUNT 3.43 x10^6/uL (4.38-5.82); RED CELL DISTRIBUTION WIDTH 13.3 % (9.4-14.8)
[2019-03-12 03:22] LABS: ALANINE AMINOTRANSFERASE 66 U/L (12-78); ALBUMIN 2.3 g/dL (3.4-5.0); ANION GAP 4 mmol/L (5-15); CALCIUM 8.3 mg/dL (8.5-10.1); CHLORIDE 104 mmol/L (98-107); CREATININE 0.78 mg/dL (0.7-1.3)
[2019-03-12 03:24] LABS: ALKALINE PHOSPHATASE 338 U/L (45-117); BILIRUBIN,TOTAL 0.3 mg/dL (0.2-1.0)
[2019-03-12] MEDS: HEPARIN 5,000 UNITS/ML, 1ML IV PRN (04:13)
[2019-03-12] MEDS: PIPERACILLIN/TAZO/PMX 3.375GM 50 ML IV SCH ×4 (04:17→22:53)
[2019-03-12 05:32] VITALS: BP 119/74
[2019-03-12] MEDS: D5%-0.45NACL+KCL 20MEQ 1,000 ML IV SCH (08:51)
[2019-03-12 08:56] VITALS: BP 131/75
[2019-03-12] MEDS ORDERED: KETOROLAC 30 MG/1 ML IVPush ONE (09:00)
[2019-03-12] MEDS ORDERED: ENOXAPARIN 80 MG/0.8 ML SQ SCH (09:00)
[2019-03-12] MEDS ORDERED: Enoxaparin 1 mg/kg protocol SQ SCH (09:00)
[2019-03-12] MEDS ORDERED: RIVAROXABAN 15 MG TABLET PO ONE (13:00)
[2019-03-12] MEDS ORDERED: KETOROLAC 30 MG/1 ML ONE (14:35)
[2019-03-12] MEDS: KETOROLAC 30 MG/1 ML IVPush PRN ×2 (14:44→20:30)
[2019-03-12 15:00] VITALS: BP 111/69
[2019-03-12] MEDS: RIVAROXABAN 15 MG TABLET PO SCH (17:01)
[2019-03-12 19:45] VITALS: BP 113/70
[2019-03-13] MEDS: OXYcodone IR 5MG TABLET PO PRN ×6 (00:59→23:11)
[2019-03-13] MEDS: DIAZEPAM 5 MG/ML, 2ML IV PRN (01:48)
[2019-03-13] MEDS: KETOROLAC 30 MG/1 ML IVPush PRN (02:41)
[2019-03-13 03:00] VITALS: BP 109/64
[2019-03-13] MEDS: PIPERACILLIN/TAZO/PMX 3.375GM 50 ML IV SCH ×4 (04:34→23:12)
[2019-03-13] MEDS: PANTOPRAZOLE GRAN. PKT 40 MG PO SCH (05:36)
[2019-03-13 05:42] LABS: BASOPHILS # (AUTO) 0.05 x10^3/uL (0-0.1); BASOPHILS % (AUTO) 1 % (0-1); EOSINOPHILS # (AUTO) 0.63 x10^3/uL (0-0.4); EOSINOPHILS % (AUTO) 8 % (1-7); LYMPHOCYTES # (AUTO) 1.71 x10^3/uL (1-3.4); LYMPHOCYTES % (AUTO) 23 % (22-44); MD NO; MEAN CORPUSCULAR HEMOGLOBIN 30.6 pg (27.5-34.5); MEAN CORPUSCULAR HGB CONC 32.4 g/dL (33.2-36.2); MEAN CORPUSCULAR VOLUME 94.6 fL (81-97); MONOCYTES # (AUTO) 0.91 x10^3/uL (0.2-0.8); MONOCYTES % (AUTO) 12 % (2-9); NEUTROPHILS # (AUTO) 4.24 x10^3/uL (1.8-6.8); NEUTROPHILS % (AUTO) 56 % (42-75); PLATELET COUNT 432 x10^3/uL (130-400); RED BLOOD COUNT 3.24 x10^6/uL (4.38-5.82)
[2019-03-13 05:50] LABS: ALANINE AMINOTRANSFERASE 51 U/L (12-78); ALBUMIN 2.2 g/dL (3.4-5.0); ANION GAP 6 mmol/L (5-15); CALCIUM 8.4 mg/dL (8.5-10.1); CHLORIDE 103 mmol/L (98-107); CREATININE 0.77 mg/dL (0.7-1.3)
[2019-03-13 05:52] LABS: ALKALINE PHOSPHATASE 281 U/L (45-117); BILIRUBIN,TOTAL 0.5 mg/dL (0.2-1.0); TOTAL PROTEIN 6.9 g/dL (6.4-8.2)
[2019-03-13 06:52] VITALS: BP 109/71
[2019-03-13 07:45] VITALS: BP 109/68
[2019-03-13] MEDS: RIVAROXABAN 15 MG TABLET PO SCH ×2 (09:43→17:04)
[2019-03-13] MEDS: DIAZEPAM 5 MG TABLET PO PRN ×2 (12:28→20:06)
[2019-03-13 15:25] VITALS: BP 120/75
[2019-03-13] MEDS: LACTOBACILLUS 1GM/ PACKET PO SCH (18:13)
[2019-03-13 18:51] VITALS: BP 106/68
[2019-03-14 01:37] VITALS: BP 113/72
[2019-03-14] MEDS: DIAZEPAM 5 MG TABLET PO PRN ×4 (02:14→23:05)
[2019-03-14] MEDS: LACTOBACILLUS 1GM/ PACKET PO SCH ×4 (02:14→20:33)
[2019-03-14] MEDS: PANTOPRAZOLE GRAN. PKT 40 MG PO SCH (05:01)
[2019-03-14] MEDS: PIPERACILLIN/TAZO/PMX 3.375GM 50 ML IV SCH ×4 (05:02→23:05)
[2019-03-14] MEDS: OXYcodone IR 5MG TABLET PO PRN ×4 (05:02→20:33)
[2019-03-14 06:09] LABS: ALANINE AMINOTRANSFERASE 49 U/L (12-78); ALBUMIN 2.6 g/dL (3.4-5.0); ANION GAP 7 mmol/L (5-15); CALCIUM 9.1 mg/dL (8.5-10.1); CHLORIDE 103 mmol/L (98-107); CREATININE 0.83 mg/dL (0.7-1.3)
[2019-03-14 06:11] LABS: ALKALINE PHOSPHATASE 276 U/L (45-117); BILIRUBIN,TOTAL 0.3 mg/dL (0.2-1.0)
[2019-03-14 06:14] LABS: BASOPHILS # (AUTO) 0.04 x10^3/uL (0-0.1); BASOPHILS % (AUTO) 1 % (0-1); EOSINOPHILS # (AUTO) 0.55 x10^3/uL (0-0.4); EOSINOPHILS % (AUTO) 6 % (1-7); LYMPHOCYTES # (AUTO) 2.04 x10^3/uL (1-3.4); LYMPHOCYTES % (AUTO) 22 % (22-44); MD NO; MEAN CORPUSCULAR HEMOGLOBIN 29.9 pg (27.5-34.5); MEAN CORPUSCULAR HGB CONC 32.1 g/dL (33.2-36.2); MEAN CORPUSCULAR VOLUME 93.2 fL (81-97); MEAN PLATELET VOLUME 8.7 fL (7.4-10.4); MONOCYTES # (AUTO) 0.79 x10^3/uL (0.2-0.8); MONOCYTES % (AUTO) 9 % (2-9); NEUTROPHILS # (AUTO) 5.77 x10^3/uL (1.8-6.8); NEUTROPHILS % (AUTO) 63 % (42-75); PLATELET COUNT 459 x10^3/uL (130-400); RED CELL DISTRIBUTION WIDTH 13.2 % (9.4-14.8)
[2019-03-14 07:22] VITALS: BP 111/64
[2019-03-14] MEDS: RIVAROXABAN 15 MG TABLET PO SCH ×2 (08:29→16:54)
[2019-03-14 16:21] VITALS: BP 110/71
[2019-03-14 18:35] VITALS: BP 103/74
[2019-03-15 01:48] VITALS: BP 112/73
[2019-03-15] MEDS: PIPERACILLIN/TAZO/PMX 3.375GM 50 ML IV SCH ×2 (04:54→10:25)
[2019-03-15] MEDS: PANTOPRAZOLE GRAN. PKT 40 MG PO SCH (04:54)
[2019-03-15 07:23] VITALS: BP 124/80
[2019-03-15 08:55] LABS: BASOPHILS # (AUTO) 0.03 x10^3/uL (0-0.1); BASOPHILS % (AUTO) 0 % (0-1); EOSINOPHILS # (AUTO) 0.41 x10^3/uL (0-0.4); EOSINOPHILS % (AUTO) 5 % (1-7); LYMPHOCYTES # (AUTO) 1.24 x10^3/uL (1-3.4); LYMPHOCYTES % (AUTO) 14 % (22-44); MD NO; MEAN CORPUSCULAR HEMOGLOBIN 29.6 pg (27.5-34.5); MEAN CORPUSCULAR HGB CONC 32.3 g/dL (33.2-36.2); MEAN CORPUSCULAR VOLUME 91.9 fL (81-97); MEAN PLATELET VOLUME 8.7 fL (7.4-10.4); MONOCYTES # (AUTO) 0.59 x10^3/uL (0.2-0.8); MONOCYTES % (AUTO) 7 % (2-9); NEUTROPHILS # (AUTO) 6.67 x10^3/uL (1.8-6.8); NEUTROPHILS % (AUTO) 75 % (42-75); PLATELET COUNT 494 x10^3/uL (130-400); RED BLOOD COUNT 3.63 x10^6/uL (4.38-5.82); RED CELL DISTRIBUTION WIDTH 12.8 % (9.4-14.8)
[2019-03-15 09:06] LABS: ALANINE AMINOTRANSFERASE 53 U/L (12-78); ALBUMIN 2.6 g/dL (3.4-5.0); ANION GAP 6 mmol/L (5-15); CALCIUM 9.2 mg/dL (8.5-10.1); CHLORIDE 104 mmol/L (98-107); CREATININE 0.85 mg/dL (0.7-1.3)
[2019-03-15] MEDS: OXYcodone IR 5MG TABLET PO PRN ×4 (09:08→21:53)
[2019-03-15] MEDS: LACTOBACILLUS 1GM/ PACKET PO SCH ×3 (09:08→21:52)
[2019-03-15] MEDS: RIVAROXABAN 15 MG TABLET PO SCH ×2 (09:08→17:23)
[2019-03-15 09:09] LABS: ALKALINE PHOSPHATASE 248 U/L (45-117); BILIRUBIN,TOTAL 0.4 mg/dL (0.2-1.0); TOTAL PROTEIN 8.1 g/dL (6.4-8.2)
[2019-03-15] MEDS: DIAZEPAM 5 MG TABLET PO PRN ×2 (10:25→16:13)
[2019-03-15 12:44] VITALS: BP 118/76
[2019-03-15 18:43] VITALS: BP 114/74
[2019-03-16 01:46] VITALS: BP 124/77
[2019-03-16] MEDS: OXYcodone IR 5MG TABLET PO PRN ×6 (02:04→22:34)
[2019-03-16] MEDS: DIAZEPAM 5 MG TABLET PO PRN ×3 (02:04→16:10)
[2019-03-16 05:06] LABS: BASOPHILS % (AUTO) 1 % (0-1); EOSINOPHILS # (AUTO) 0.59 x10^3/uL (0-0.4); EOSINOPHILS % (AUTO) 7 % (1-7); LYMPHOCYTES # (AUTO) 1.97 x10^3/uL (1-3.4); LYMPHOCYTES % (AUTO) 24 % (22-44); MD NO; MEAN CORPUSCULAR HEMOGLOBIN 30.2 pg (27.5-34.5); MEAN CORPUSCULAR HGB CONC 32.1 g/dL (33.2-36.2); MEAN CORPUSCULAR VOLUME 93.8 fL (81-97); MEAN PLATELET VOLUME 9.2 fL (7.4-10.4); MONOCYTES # (AUTO) 0.76 x10^3/uL (0.2-0.8); MONOCYTES % (AUTO) 9 % (2-9); NEUTROPHILS # (AUTO) 4.83 x10^3/uL (1.8-6.8); NEUTROPHILS % (AUTO) 59 % (42-75); PLATELET COUNT 451 x10^3/uL (130-400); RED BLOOD COUNT 3.48 x10^6/uL (4.38-5.82); RED CELL DISTRIBUTION WIDTH 13.3 % (9.4-14.8)
[2019-03-16 05:19] LABS: ALBUMIN 2.5 g/dL (3.4-5.0); ANION GAP 5 mmol/L (5-15); CALCIUM 9.1 mg/dL (8.5-10.1); CHLORIDE 104 mmol/L (98-107)
[2019-03-16 05:22] LABS: ALANINE AMINOTRANSFERASE 70 U/L (12-78); ALKALINE PHOSPHATASE 226 U/L (45-117); BILIRUBIN,TOTAL 0.4 mg/dL (0.2-1.0); CREATININE 0.81 mg/dL (0.7-1.3); TOTAL PROTEIN 7.9 g/dL (6.4-8.2)
[2019-03-16] MEDS: PANTOPRAZOLE GRAN. PKT 40 MG PO SCH (07:23)
[2019-03-16 07:46] VITALS: BP 118/77
[2019-03-16] MEDS: LACTOBACILLUS 1GM/ PACKET PO SCH ×3 (08:31→20:59)
[2019-03-16] MEDS: RIVAROXABAN 15 MG TABLET PO SCH ×2 (08:31→16:53)
[2019-03-16 15:50] VITALS: BP 110/67
[2019-03-16 19:37] VITALS: BP 115/71
[2019-03-17] MEDS: DIAZEPAM 5 MG TABLET PO PRN ×3 (00:35→14:33)
[2019-03-17 01:15] VITALS: BP 115/69
[2019-03-17] MEDS: OXYcodone IR 5MG TABLET PO PRN ×5 (04:00→20:15)
[2019-03-17 05:49] LABS: BASOPHILS # (AUTO) 0.06 x10^3/uL (0-0.1); BASOPHILS % (AUTO) 1 % (0-1); EOSINOPHILS # (AUTO) 0.52 x10^3/uL (0-0.4); EOSINOPHILS % (AUTO) 7 % (1-7); LYMPHOCYTES # (AUTO) 1.85 x10^3/uL (1-3.4); LYMPHOCYTES % (AUTO) 24 % (22-44); MD NO; MEAN CORPUSCULAR HEMOGLOBIN 29.9 pg (27.5-34.5); MEAN CORPUSCULAR HGB CONC 32.2 g/dL (33.2-36.2); MEAN CORPUSCULAR VOLUME 93.1 fL (81-97); MEAN PLATELET VOLUME 9.1 fL (7.4-10.4); MONOCYTES # (AUTO) 0.72 x10^3/uL (0.2-0.8); MONOCYTES % (AUTO) 9 % (2-9); NEUTROPHILS % (AUTO) 59 % (42-75); PLATELET COUNT 423 x10^3/uL (130-400); RED BLOOD COUNT 3.38 x10^6/uL (4.38-5.82); RED CELL DISTRIBUTION WIDTH 13.2 % (9.4-14.8)
[2019-03-17 05:58] LABS: CHLORIDE 106 mmol/L (98-107)
[2019-03-17 06:04] LABS: ALANINE AMINOTRANSFERASE 66 U/L (12-78); ALBUMIN 2.6 g/dL (3.4-5.0); ALKALINE PHOSPHATASE 214 U/L (45-117); ANION GAP 7 mmol/L (5-15); BILIRUBIN,TOTAL 0.3 mg/dL (0.2-1.0); CALCIUM 9.2 mg/dL (8.5-10.1); CREATININE 0.75 mg/dL (0.7-1.3); TOTAL PROTEIN 7.7 g/dL (6.4-8.2)
[2019-03-17] MEDS: PANTOPRAZOLE GRAN. PKT 40 MG PO SCH (06:50)
[2019-03-17 06:59] VITALS: BP 114/66
[2019-03-17] MEDS: RIVAROXABAN 15 MG TABLET PO SCH ×2 (08:01→18:34)
[2019-03-17] MEDS: LACTOBACILLUS 1GM/ PACKET PO SCH ×2 (08:01→16:41)
[2019-03-17 14:25] VITALS: BP 116/72
[2019-03-17 19:50] VITALS: BP 109/69
[2019-03-17] MEDS: LACTOBACILLUS CHEW TABLET PO SCH (20:15)
[2019-03-18] MEDS: OXYcodone IR 5MG TABLET PO PRN ×4 (01:56→14:46)
[2019-03-18] MEDS: DIAZEPAM 5 MG TABLET PO PRN ×3 (01:56→14:46)
[2019-03-18 02:54] VITALS: BP 112/74
[2019-03-18 05:02] LABS: BASOPHILS # (AUTO) 0.08 x10^3/uL (0-0.1); BASOPHILS % (AUTO) 1 % (0-1); EOSINOPHILS # (AUTO) 0.52 x10^3/uL (0-0.4); EOSINOPHILS % (AUTO) 6 % (1-7); LYMPHOCYTES # (AUTO) 1.93 x10^3/uL (1-3.4); LYMPHOCYTES % (AUTO) 22 % (22-44); MD NO; MEAN CORPUSCULAR HEMOGLOBIN 30.2 pg (27.5-34.5); MEAN CORPUSCULAR HGB CONC 32.4 g/dL (33.2-36.2); MEAN CORPUSCULAR VOLUME 93.2 fL (81-97); MEAN PLATELET VOLUME 9.3 fL (7.4-10.4); MONOCYTES # (AUTO) 0.75 x10^3/uL (0.2-0.8); MONOCYTES % (AUTO) 9 % (2-9); NEUTROPHILS # (AUTO) 5.55 x10^3/uL (1.8-6.8); NEUTROPHILS % (AUTO) 63 % (42-75); PLATELET COUNT 422 x10^3/uL (130-400); RED BLOOD COUNT 3.42 x10^6/uL (4.38-5.82); RED CELL DISTRIBUTION WIDTH 13.1 % (9.4-14.8)
[2019-03-18 05:13] LABS: ALBUMIN 2.6 g/dL (3.4-5.0); ANION GAP 6 mmol/L (5-15); CALCIUM 9.1 mg/dL (8.5-10.1); CHLORIDE 106 mmol/L (98-107)
[2019-03-18 05:16] LABS: ALANINE AMINOTRANSFERASE 71 U/L (12-78); ALKALINE PHOSPHATASE 211 U/L (45-117); BILIRUBIN,TOTAL 0.2 mg/dL (0.2-1.0); CREATININE 0.82 mg/dL (0.7-1.3); TOTAL PROTEIN 7.7 g/dL (6.4-8.2)
[2019-03-18] MEDS ORDERED: PANTOPROZOLE 40MG TABLET PO SCH (06:00)
[2019-03-18 07:29] VITALS: BP 111/71
[2019-03-18] MEDS: LACTOBACILLUS CHEW TABLET PO SCH ×2 (08:02→14:46)
[2019-03-18] MEDS: RIVAROXABAN 15 MG TABLET PO SCH (08:02)
[2019-03-18 13:26] VITALS: BP 103/66
[2019-03-18] MEDS ORDERED: RIVA20TA PO (14:02)
[2019-03-18] MEDS ORDERED: RIVA15TA PO (14:02)
[2019-03-18] MEDS ORDERED: PANT40TA5 PO (14:02)
[2019-03-18] MEDS ORDERED: ACID1TAB7 PO (14:02)
== END 2019-03-18 15:45 | disposition home health service (06) | DRG 329 ==
LOC: ED 13:45 → 4NOR 17:05 → ED 17:41 → 4NOR 17:42 → DCLOUNGE 03-18 15:30
PROVIDERS: ADMIT Internal Medicine; ATTEND Internal Medicine
PROC: 0DBP0ZX Excision of Rectum, Open Approach, Diagnostic (ICD-10-PCS; 2019-03-04)
PROC: 3E0T3BZ Introduction of Anesthetic Agent into Peripheral Nerves and Plexi, Percutaneous Approach (ICD-10-PCS; 2019-03-07)
PROC: 0D1N0Z4 Bypass Sigmoid Colon to Cutaneous, Open Approach (ICD-10-PCS; principal; 2019-03-07 16:00)
DX: K61.2 Anorectal abscess (principal); E43 Unspecified severe protein-calorie malnutrition; K50.113 Crohn's disease of large intestine with fistula; D68.69 Other thrombophilia; J98.11 Atelectasis; K60.3 Anal fistula; D64.9 Anemia, unspecified; F41.9 Anxiety disorder, unspecified; I10 Essential (primary) hypertension; K62.89 Other specified diseases of anus and rectum; K63.5 Polyp of colon; Z79.01 Long term (current) use of anticoagulants; Z80.1 Family history of malignant neoplasm of trachea, bronchus and lung; Z86.711 Personal history of pulmonary embolism; Z86.010 Personal history of colon polyps; Z68.23 Body mass index [BMI] 23.0-23.9, adult; Z87.891 Personal history of nicotine dependence; Z91.14 Patient's other noncompliance with medication regimen; Z91.19 Patient's noncompliance with other medical treatment and regimen
CPT/HCPCS: 36415; 96361; 99285; J3490; 71046; 71275; 74177; 80048; 80053; 80061; 83036; 83605; 83735; 84100; 84439; 84443; 85025; 85520; 87040; 88305; 93005; 93306; 93970; 96374; 96375; 96376; G0378; J0171; J1100; J1170; J1644; J1650; J1885; J2250; J2270; J2405; J2543; J2704; J3010; J3360; Q9967; J3480; J7030; J7040

== ENCOUNTER 2019-05-01 09:17 | Emergency (ER) | payer BC ==
[~2019-05-01] VITALS: Ht 182.9 cm; Wt 81.2 kg
[~2019-05-01 09:17] MED LIST changes: +ACID1TAB7 PO; +PANT40TA5 PO; +RIVA15TA PO; +RIVA20TA PO
--- NOTE | 2019-05-01 09:33 | NUR ---
EKG IN TRIAGE
--- NOTE | 2019-05-01 09:49 | NUR ---
FIRST CONTACT WITH PT. ROUNDED. PT ON CATCHER PLUG AND SERIAL VS. CALL LIGHT IN REACH. PT DENIES ANY NEEDS. NAD. VSS.
--- NOTE | 2019-05-01 10:10 | NUR ---
PT RESTING IN BED. NAD. PT REPORTS SEVERAL RECENT SURG HERE AT [facility] THAT RESULTED IN BILAT PE'S. HE IS CURRENTLY NOT HAVING SOB OR CHEST PAIN.
--- NOTE | 2019-05-01 10:12 | NUR ---
LAB AT BEDSIDE.
[2019-05-01 10:32] LABS: BASOPHILS # (AUTO) 0.01 x10^3/uL (0-0.1); BASOPHILS % (AUTO) 0 % (0-1); EOSINOPHILS # (AUTO) 0.26 x10^3/uL (0-0.4); EOSINOPHILS % (AUTO) 5 % (1-7); LYMPHOCYTES # (AUTO) 1.09 x10^3/uL (1-3.4); LYMPHOCYTES % (AUTO) 20 % (22-44); MD NO; MEAN CORPUSCULAR HEMOGLOBIN 31.6 pg (27.5-34.5); MEAN CORPUSCULAR HGB CONC 32.8 g/dL (33.2-36.2); MEAN CORPUSCULAR VOLUME 96.3 fL (81-97); MEAN PLATELET VOLUME 9.7 fL (7.4-10.4); MONOCYTES # (AUTO) 0.39 x10^3/uL (0.2-0.8); MONOCYTES % (AUTO) 7 % (2-9); NEUTROPHILS # (AUTO) 3.59 x10^3/uL (1.8-6.8); NEUTROPHILS % (AUTO) 67 % (42-75); PLATELET COUNT 262 x10^3/uL (130-400); RED BLOOD COUNT 4.49 x10^6/uL (4.38-5.82); RED CELL DISTRIBUTION WIDTH 16.8 % (9.4-14.8)
[2019-05-01 10:43] LABS: ALBUMIN 3.6 g/dL (3.4-5.0); ANION GAP 8 mmol/L (5-15); CALCIUM 8.8 mg/dL (8.5-10.1); CHLORIDE 106 mmol/L (98-107); CREATININE 0.85 mg/dL (0.7-1.3)
[2019-05-01 10:46] LABS: TROPONIN I < 0.015 ng/mL (0.000-0.045)
--- NOTE | 2019-05-01 11:41 | NUR ---
POC AND DISCHARGE DISCUSSED WITH PT AND PT VERBALIZED UNDERSTANDING. PT STATES HE FEELS READY TO GO HOME. PT DENIES ANY NEEDS AT THIS TIME.
[2019-05-01 11:45] VITALS: BP 129/78
--- NOTE | 2019-05-01 11:46 | NUR ---
Patient/Caregiver given discharge instructions and they have confirmed that they understand the instructions. Patient ambulatory with steady gait.
--- NOTE | 2019-05-01 11:58 | NUR ---
PT DISCHARGED IN STABLE CONDITION AND GIVEN INSTRUCTIONS TO RETURN TO ER IF SYMPTOMS PERSIST. PT DENIES CHEST PAIN, SOB, OR ABNORMAL SENSATIONS AT TIME OF DISCHARGE.
== END 2019-05-01 11:59 | disposition home or self-care (01) ==
LOC: ED 09:47
DX: R07.2 Precordial pain (principal); R20.2 Paresthesia of skin; Z79.01 Long term (current) use of anticoagulants
CPT/HCPCS: 36415; 70450; 71045; 80048; 82040; 84484; 85025; 85379; 93005; 99284

== ENCOUNTER 2020-05-05 10:06 | Outpatient (CLI) | payer BC ==
[2020-05-05] MEDS ORDERED: INFL100V IV (10:29)
== END 2020-05-05 23:59 | disposition home or self-care (01) ==
LOC: STAR 10:06
PROVIDERS: ATTEND Surgery
DX: Z02.9 Encounter for administrative examinations, unspecified (principal)